=== PATIENT | male | born 1955 | race Caucasian/White ===

== ENCOUNTER 2016-12-03 09:12 | Emergency (ER) | payer MEDICARE ==
[~2016-12-03 09:12] MED LIST: ALPRAZOLAM0.5 MG PO; AMBIEN5 MG PO; ANTIVERT 12.512.5 MG PO; ASPIRIN EC81 MG PO; NORCO 7.5-3251 EACH PO; PRILOSEC20 MG PO; ZESTRIL10 MG PO
[2017-03-30] MEDS ORDERED: METOPROLOL TART25 MG PO (01:18)
[2017-03-30] MEDS ORDERED: AMBIEN10 MG PO (01:19)
[2017-03-30] MEDS ORDERED: IMDUR ER TAB 3030 MG PO (13:03)
[2017-03-30] MEDS ORDERED: CRESTOR5 MG PO (13:05)
[2017-03-30] MEDS ORDERED: NITROSTAT0.4 MG SL (13:13)
== END 2016-12-03 12:30 | disposition home or self-care (01) ==
LOC: ER1 09:12
DX: S39.012A Strain of muscle, fascia and tendon of lower back, initial encounter (principal); M48.06 Spinal stenosis, lumbar region; M51.36 Other intervertebral disc degeneration, lumbar region; M62.830 Muscle spasm of back; F17.210 Nicotine dependence, cigarettes, uncomplicated; Z88.2 Allergy status to sulfonamides; X58.XXXA Exposure to other specified factors, initial encounter
CPT/HCPCS: 72128; 72131; 99284

== ENCOUNTER 2022-01-11 15:07 | Emergency (ER) | payer MEDICARE ==
[~2022-01-11 15:07] MED LIST changes: +AMBIEN10 MG PO; +AMOXICILLIN500 M1 PO; +CLARITHROMYCIN500 MG PO; +CRESTOR5 MG PO; +IMDUR ER TAB 3030 MG PO; +METOPROLOL TART25 MG PO; +NITROSTAT0.4 MG SL
[2022-01-11 16:25] LABS: RED BLOOD COUNT 4.78 M/UL (4.20-5.50); WHITE BLOOD COUNT 6.8 K/UL (4.5-11.0)
[2022-01-11 16:56] LABS: BUN/CREATININE RATIO 18 (0-10)
[2022-01-11] MEDS ORDERED: ONDANSETRON ODT8 MG PO (18:50)
== END 2022-01-11 18:59 | disposition home or self-care (01) ==
LOC: ER1 15:07
PROVIDERS: Physician Assistant
DX: R11.2 Nausea with vomiting, unspecified (principal); R19.7 Diarrhea, unspecified; I10 Essential (primary) hypertension; E11.9 Type 2 diabetes mellitus without complications; F17.200 Nicotine dependence, unspecified, uncomplicated; Z87.442 Personal history of urinary calculi; Z88.2 Allergy status to sulfonamides
CPT/HCPCS: 80053; 81001; 83690; 85025; 96374; 96376; 99284; J2405